=== PATIENT | male | born 1960 | race African-American/Black ===

== ENCOUNTER → 2020-01-17 | Outpatient (CLI) | payer MEDICAID | LOC: COL.RAD 14:00 | DX: M25.552 Pain in left hip (principal); Z96.652 Presence of left artificial knee joint ==

== ENCOUNTER → 2020-02-15 | Outpatient (CLI) | payer MEDICAID | LOC: COL.LAB 12:38 | DX: M19.032 Primary osteoarthritis, left wrist (principal) ==

== ENCOUNTER 2020-02-23 00:59 | Emergency (ER) | payer MEDICAID ==
[~2020-02-23] VITALS: Ht 175.3 cm; Wt 79.5 kg
[2020-02-23 01:08] VITALS: TEMP 98
[2020-02-23 02:20] VITALS: BP 140/89; PULSE 89
== END 2020-02-23 02:20 | disposition home or self-care (01) ==
LOC: COL.ER 00:59
DX: M54.30 Sciatica, unspecified side (principal); F17.210 Nicotine dependence, cigarettes, uncomplicated
CPT/HCPCS: J1885

== ENCOUNTER 2020-08-15 02:51 | Emergency (ER) | payer MEDICAID ==
[~2020-08-15] VITALS: Ht 175.3 cm; Wt 79.5 kg
[2020-08-15 02:52] VITALS: TEMP 97.2
[2020-08-15] MEDS ORDERED: ULTRAM 50MG TAB50 MG PO (04:47)
[2020-08-15] MEDS ORDERED: WALKER MC (04:50)
[2020-08-15 04:58] VITALS: BP 136/70; PULSE 78
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
== END 2020-08-15 04:58 | disposition home or self-care (01) ==
LOC: COL.ER 02:51
DX: S72.402A Unspecified fracture of lower end of left femur, initial encounter for closed fracture (principal); F17.210 Nicotine dependence, cigarettes, uncomplicated; Z96.60 Presence of unspecified orthopedic joint implant; Z98.890 Other specified postprocedural states; V09.9XXA Pedestrian injured in unspecified transport accident, initial encounter

== ENCOUNTER → 2020-08-25 | Outpatient (CLI) | payer MEDICAID ==
[~2020-08-25] MED LIST: ULTRAM 50MG TAB50 MG PO; WALKER MC
[2020-08-25 15:29] LABS: BASO # 0.1 (0.0-0.2); BASO % 0.9 % (0.0-2.0); EOS # 0.2 (0.0-0.7); EOS % 3.7 % (0-4.0); GRAN # 3.1 (1.4-6.5); GRAN % 58.3 % (42.2-75.2); HEMOGLOBIN 10.6 g/dl (13.5-18.0); LYMPH # 1.6 (1.2-3.4); LYMPH % 29.2 % (20.0-51.0); MEAN CELL VOLUME 94 fl (80.0-100.0); MEAN CORPUSCULAR HEMOGLOBIN 31 pg (27.0-31.0); MEAN CORPUSCULAR HGB CONC 32 g/dl (33.0-37.0); MEAN PLATELET VOLUME 9.4 fl (7.4-10.4); MONO # 0.4 (0.1-0.6); MONO % 7.5 % (1.7-9.3); PLATELET COUNT 549 K/mm3 (130-400); RED BLOOD COUNT 3.48 M/mm3 (4.20-5.60); REDCELL DISTRIBUTION WIDTH-CV 13.2 % (11.5-14.5)
[2020-08-25 15:30] LABS: HEMATOCRIT 32.7 % (42.0-52.0)
== END ==
LOC: COL.LAB 14:49 → COL.RAD 14:57 → COL.LAB 14:57
PROVIDERS: Registered Nurse
DX: S72.92XD Unspecified fracture of left femur, subsequent encounter for closed fracture with routine healing (principal); L03.116 Cellulitis of left lower limb

== ENCOUNTER 2020-10-01 10:59 | Emergency (ER) | payer MEDICAID ==
[2020-10-01 11:09] VITALS: TEMP 97
[2020-10-01 13:00] VITALS: BP 127/93; PULSE 57
== END 2020-10-01 13:00 | disposition home or self-care (01) ==
LOC: COL.ER 10:59
DX: R41.82 Altered mental status, unspecified (principal); F17.210 Nicotine dependence, cigarettes, uncomplicated

== ENCOUNTER → 2021-01-28 | Outpatient (CLI) | payer MEDICAID | LOC: COL.RAD 11:03 | DX: S63.111A Subluxation of metacarpophalangeal joint of right thumb, initial encounter (principal); M18.11 Unilateral primary osteoarthritis of first carpometacarpal joint, right hand; T14.90XA Injury, unspecified, initial encounter ==

== ENCOUNTER → 2021-02-09 | Outpatient (CLI) | payer OTHER, MEDICAID | LOC: COL.RAD 15:00 | DX: S06.9X9S Unspecified intracranial injury with loss of consciousness of unspecified duration, sequela (principal) ==

== ENCOUNTER 2021-02-24 09:00 | Outpatient (RCR) | payer MEDICAID | END 2021-03-09 | disposition home or self-care (01) | LOC: PT.GENESIS | DX: S72.002A Fracture of unspecified part of neck of left femur, initial encounter for closed fracture (principal) ==

== ENCOUNTER 2021-07-31 10:33 | Day surgery (SDC) | payer MEDICAID ==
[~2021-07-31] VITALS: Ht 175.3 cm; Wt 71.5 kg
[2021-07-31 11:06] VITALS: BP 119/83; PULSE 55; TEMP 97.6
[2021-07-31 12:40] VITALS: BP 118/89; PULSE 50; TEMP 96.5
--- NOTE | 2021-07-31 12:40 | NUR ---
PT arrived from procedure drowsy but oriented. Monitors applied and VSS. PT is eating his personal crackers, and provided apple juice to drink. PT denies nausea. NO vomiting. Verbal report obtained from Alecia TSE. PT oriented to room and call callaway, within reach.
[2021-07-31 12:55] VITALS: BP 117/82; PULSE 49
--- NOTE | 2021-07-31 12:55 | NUR ---
VSS. PT continues to deny nauea and expressed desire to be discharged. Call callaway remains within reach.
[2021-07-31 13:10] VITALS: BP 124/87; PULSE 48
--- NOTE | 2021-07-31 13:10 | NUR ---
VSS. IV discontinued. Catheter tip intact. Pressure bandage applied. NO redness or swelling noted. DC instructions and educational material reviewed with the pt who verbalized understanding and signed the realted paperwork. PT denied needing assistance changing into personal clohtes. is present to assist. Call callaway remains within reach. Questions answered.
--- NOTE | 2021-07-31 13:59 | NUR ---
PT dismissed from endo via wheelchair to the PT entrence and transferred into the care of his father, who is present to drive private car. PT has DC packet and personal belongings.
== END 2021-07-31 13:55 | disposition home or self-care (01) ==
LOC: SDCO 10:33
DX: Z12.11 Encounter for screening for malignant neoplasm of colon (principal); D12.2 Benign neoplasm of ascending colon; D12.3 Benign neoplasm of transverse colon; D12.5 Benign neoplasm of sigmoid colon; D12.0 Benign neoplasm of cecum; F17.210 Nicotine dependence, cigarettes, uncomplicated
CPT/HCPCS: J2704; J3010; J7120

== ENCOUNTER 2022-12-10 11:09 | Day surgery (SDC) | payer OTHER ==
--- NOTE | 2022-12-09 10:41 | NUR ---
PATIENT STATES THAT HE IS UNSURE IF HE HAS ADVANCE DIRECTIVES OR ANYTHING MADE OUT.
[~2022-12-10 11:09] MED LIST changes: +FLEXERIL 1010 MG/TAB PO; +FLEXERIL5 MG PO; +MEDROL 4MG DOSPA4 MG PO
[2022-12-10] MEDS ORDERED: FLEXERIL 1010 MG/TAB PO (11:55)
[2022-12-10 12:13] LABS: TRICYCLIC ANTIDEPRESS URINE NEGATIVE
--- NOTE | 2022-12-10 13:00 | NUR ---
1250-DR MERRITT AT BEDSIDE TO DISCUSS LAB RESULTS. DR MERRITT INFORMED PT HIS SURGERY WOULD BE CANCELLED. PT VERBALIZED UNDERSTANDING. PT DRESSED SELF AND AMBULATED OFF UNIT ACCOMPANIED BY HIS AT 1300.
== END 2022-12-10 13:00 | disposition home or self-care (01) ==
LOC: SDCO 11:09
PROVIDERS: Surgery
DX: K40.90 Unilateral inguinal hernia, without obstruction or gangrene, not specified as recurrent (principal); F17.210 Nicotine dependence, cigarettes, uncomplicated; Z53.8 Procedure and treatment not carried out for other reasons